=== PATIENT | female | born 1975 | race Caucasian/White ===

== ENCOUNTER 2016-06-05 16:59 | Emergency (ER) | payer OTHER ==
[2016-06-05 17:06] VITALS: BP 118/79; PULSE 71; TEMP 98; BMI 23.9
[2016-06-05] MEDS ORDERED: KETOROLAC TROMETHAMINE 60 MG/2 ML VIAL IM ONE (17:44)
[2016-06-05] MEDS ORDERED: KETOROLAC TROMETHAMINE 60 MG/2 ML VIAL ONE (17:49)
--- NOTE | 2016-06-05 17:55 | PDOC ---
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 Severity: reports: moderate Pain Location: reports: upper extremity Method of Injury: Yes: other (trauma right ring finger) Past History - Past Medical History Allergies/Adverse Reactions: Allergies Allergy/AdvReac Type Severity Reaction Status Date / Time morphine Allergy Rash Verified 06/05/16 17:06 Home Medications: Ambulatory Orders Ibuprofen [Advil -] 200 mg PO PRN PRN 11/09/14 Meclizine HCl 25 mg PO TID #30 tab.chew 11/09/14 Naproxen [EC-Naprosyn] 375 mg PO BID #20 tablet.ec 06/05/16 Anemia: No Asthma: No Cancer: No Cardiac Disorders: No CVA: No COPD: No CHF: No Dementia: No Diabetes: No GI Disorders: No Disorders: No HTN: No Hypercholesterolemia: Yes Liver Disease: No Seizures: No Thyroid Disease: No - Surgical History Neurologic Surgery: Yes (SPINAL SX S/P FALL) - Psycho/Social/Smoking Cessation Hx Anxiety: No Suicidal Ideation: No Smoking Status: No Smoking History: Never smoked Number of Cigarettes Smoked Daily: 0 Hx Alcohol Use: No Drug/Substance Use Hx: No Substance Use Type: None Hx Substance Use Treatment: No Review of Systems - Review of Systems Constitutional: No: Chills, Fever, Malaise HEENTM: No: Symptoms Reported Respiratory: No: Symptoms reported Cardiac (ROS): No: Symptoms Reported, Irregular Heart Rate Musculoskeletal: Yes: Joint Pain, Joint Swelling, Neck Pain Neurological: Yes: Paresthesia, Tingling (intermitent) *Physical Exam - Vital Signs Last Vital Signs Temp Pulse Resp BP Pulse Ox 98.0 F 71 20 118/79 98 06/05/16 17:01 06/05/16 17:01 06/05/16 17:01 06/05/16 17:01 06/05/16 17:01 - Physical Exam General Appearance: Yes: Appropriately Dressed HEENT: positive: Pharynx Normal. negative: TMs Normal Neck: positive: Tender, Supple, Tender midline (area L4-L5). negative: Rigid, Rigidity Respiratory/Chest: positive: Lungs Clear Integumentary: positive: Normal Color, Dry, Warm. negative: Petechiae, Rash, Swelling, Ecchymosis, Bruising Neurologic: positive: Facial Droop, Sensory Deficit (not noted today). negative : Numbness Deep Tendon Reflexes: Bicep (L): 2+, Bicep (R): 2+, Tricep (L): 2+, Tricep (R): 2+ ED Treatment Course - RADIOLOGY Radiology Studies Ordered: Category Date Time Status FINGER(S) RIGHT [RAD] Stat Radiology 06/05/16 17:44 Ordered SPINE-CERVICAL [RAD] Stat Radiology 06/05/16 17:44 Ordered Medical Decision Making - Medical Decision Making 06/05/16 20:04 Will have pt go see Dr Ceballos this week; and start naprosyn at home today; pain better post toradol *DC/Admit/Observation/Transfer Diagnosis at time of Disposition: Pain of right upper extremity - Discharge Dispostion Disposition: HOME Condition at time of disposition: Critical Admit: No - Referrals Referrals: Alf Sanchez MD [Primary Care Provider] - Henry Ceballos MD [Staff Physician] - - Patient Instructions Additional Instructions: please follow uo with Dr Ceballos this week
== END 2016-06-05 21:44 | disposition home or self-care (01) ==
LOC: JERFT 16:59
PROC: 3E0233Z Introduction of Anti-inflammatory into Muscle, Percutaneous Approach (ICD-10-PCS; principal; 2016-06-05)
DX: M79.601 Pain in right arm (principal)
CPT/HCPCS: 72050-TC; 73140-TC-RT; 93971; 96372; 99281-25

== ENCOUNTER 2017-02-21 06:11 | Emergency (ER) | payer OTHER ==
[2017-02-21 06:32] VITALS: BMI 24.7
--- NOTE | 2017-02-21 08:21 | PDOC ---
Attending Attestation - Resident Resident Name: Claude Lundberg - ED Attending Attestation I have performed the following: I have examined & evaluated the patient, The case was reviewed & discussed with the resident, I agree w/resident's findings & plan, Exceptions are as noted - HPI HPI: 02/21/17 08:23 41y F no pmhx presents with complaint of cough, congestion, fever x 3 days. no cp, collier, hemoptysis,
[2017-02-21] MEDS ORDERED: ACETAMINOPHEN 500 MG TABLET (FP) PO ONE (08:22)
[2017-02-21] MEDS ORDERED: ACETAMINOPHEN 325 MG TABLET (FP) ONE (08:53)
--- NOTE | 2017-02-21 08:59 | PDOC ---
History of Present Illness - General Chief Complaint: Cold Symptoms Stated Complaint: FEVER Time Seen by Provider: 02/21/17 07:17 History Source: Patient Exam Limitations: No Limitations - History of Present Illness Initial Comments: 02/21/17 09:09 41y F no significant pmhx presents with complaint of nasal congestion, subjective fevers, body aches, cough productive of whitish sputum, sore throat x 4 days - she endorses +sick contacts, 1yo gran ddaughter has the same illness. pt denies any cp, hemoptysis, leg sewlling, dyspnea on exertion. 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 PMD : @Shaunna hernandez Past History - Past Medical History Allergies/Adverse Reactions: Allergies Allergy/AdvReac Type Severity Reaction Status Date / Time morphine Allergy Rash Verified 02/21/17 06:30 Home Medications: Ambulatory Orders Guaifenesin [Robitussin] 100 mg PO Q6H PRN #1 bottle 02/21/17 Pseudoephedrine HCl [Sudafed] 30 mg PO TID #24 tablet 02/21/17 Anemia: No Asthma: No Cancer: No Cardiac Disorders: No CVA: No COPD: No CHF: No Dementia: No Diabetes: No GI Disorders: No Disorders: No HTN: No Hypercholesterolemia: Yes Liver Disease: No Seizures: No Thyroid Disease: No - Surgical History Neurologic Surgery: Yes (SPINAL SX S/P FALL) - Suicide/Smoking/Psychosocial Hx Smoking Status: No Smoking History: Never smoked Have you smoked in the past 12 months: No Number of Cigarettes Smoked Daily: 0 Information on smoking cessation initiated: No Hx Alcohol Use: No Drug/Substance Use Hx: No Substance Use Type: None Hx Substance Use Treatment: No Review of Systems - Review of Systems Able to Perform ROS?: Yes Comments:: 02/21/17 09:11 Constitutional - +Fever, body aches no reported Chills, HEENT: +sore throat no reported vision changes, Respiratory:+cough, no reported sob, hemoptysis Cardiac: no reported chest pain, palpitations, light headedness, leg swelling Abd/GI: no reported abd pain, nausea, vomiting, blood per rectum, melena, diarrhea : no reported dysuria, frequency, discharge Musculskelatal - no reported back pain, joint swelling skin - no reported bruising, erythema, rash neurological: +headache, no reported numbness, focal weakness, tingling, ataxia , hematologic: no reported anemia, easy bruising, easy bleeding *Physical Exam - Vital Signs Last Vital Signs Temp Pulse Resp BP Pulse Ox 100.9 F H 116 H 14 127/97 100 02/21/17 06:30 02/21/17 06:30 02/21/17 06:30 02/21/17 06:30 02/21/17 06:30 - Physical Exam Comments: 02/21/17 09:38 GENERAL: The patient is awake, alert, and fully oriented, Nontoxic - in no acute distress. HEAD: Normocephalic, atraumatic. EYES: extraocular movements intact, sclera anicteric, conjunctiva clear. ENT: Normal voice, Moist mucous membranes. throat slightly erythemaodus NECK: Normal range of motion, supple LUNGS: Breath sounds equal, clear to auscultation bilaterally. No wheezes, no rhonchi, no rales. HEART: Regular rate and rhythm, normal S1 and S2 without murmur, rub or gallop. ABDOMEN: Soft, nontender, normoactive bowel sounds. No guarding, no rebound. . No CVA tenderness EXTREMITIES: Normal range of motion, no edema. No clubbing or cyanosis. No cords, erythema, or tenderness. NEUROLOGICAL: No facial assymetry, Normal speech, PSYCH: Normal mood, normal affect. SKIN: Warm, Dry, normal turgor, Medical Decision Making - Medical Decision Making 02/21/17 09:38 suspect viral syndrome consier influenza but pt is outside window of treatment will treat supportively with antitussive and antipyretic will have pt fu with PMD pts vitals noted for fever/tachcyardia - will give tlyenol return precautions were discussed I discussed the physical exam findings, ancillary test results and final diagnoses with the patient. I answered all of the patient's questions. The patient was satisfied with the care received and felt comfortable with the discharge plan and treatment plan. The patient will call their primary care physician within 24 hours to arrange follow-up and will return to the Emergency Department with any new, persistent or worsening symptoms. *DC/Admit/Observation/Transfer Diagnosis at time of Disposition: Flu-like symptoms, Influenza B - Discharge Dispostion Disposition: HOME Condition at time of disposition: Improved Admit: No - Prescriptions Prescriptions: Guaifenesin [Robitussin] 100 mg PO Q6H PRN #1 bottle PRN Reason: Cough Pseudoephedrine HCl [Sudafed] 30 mg PO TID #24 tablet - Referrals Referrals: Alf Sanchez MD [Primary Care Provider] - - Patient Instructions Printed Discharge Instructions: DI for Viral Upper Respiratory Infection -- Adult Additional Instructions: Regrese al departamento de emergencia de inmediato con CUALQUIER sntoma nuevo, persistente o que empeore. Spreckels tylenol y motrin para la fiebre y dmitry corporales. DEBE llamar y hacer un seguimiento con shearer mdico maana para scarlet mayor evaluaci n de aniya sntomas. Los resultados fueron discutidos con usted. Asegrese de que shearer mdico revise los resultados de shearer evaluacin de emergencia. Return to the emergency department immediately with ANY new, persistent or worsening symptoms. Take tylenol and motrin for fever and body aches. You MUST call and follow up with your doctor tomorrow for further evaluation of your symptoms. Results were discussed with you. Please make sure your doctor reviews the results of your emergency evaluation. - Post Discharge Activity
[2017-02-21 10:42] VITALS: BP 130/79; PULSE 98; TEMP 99.1
== END 2017-02-21 10:50 | disposition home or self-care (01) ==
LOC: JER 06:11
DX: J10.1 Influenza due to other identified influenza virus with other respiratory manifestations (principal)
CPT/HCPCS: 87070; 87430; 87804; 99281-25

== ENCOUNTER → 2018-07-26 | Emergency (ER) | payer OTHER | END | disposition home or self-care (01) | LOC: JER 18:15 ==

== ENCOUNTER 2018-09-16 15:51 | Emergency (ER) | payer OTHER ==
[2018-09-16 15:55] VITALS: BP 112/79; PULSE 78; TEMP 98.3; BMI 24.7
--- NOTE | 2018-09-16 16:15 | PDOC ---
History of Present Illness - General Chief Complaint: Sore Throat Stated Complaint: FEVER/DIZZINESS Time Seen by Provider: 09/16/18 16:05 History Source: Patient Exam Limitations: No Limitations - History of Present Illness Initial Comments: 09/16/18 16:24 Came for evaluation of runny nose, ear congestion, and sore throat pain onset yesterday. States felt feverish but did not take temperature. Nasal drainage is clear, has posterior sinus drainage, and some mild moist cough nonproductive. Timing/Duration: reports: getting worse Severity: reports: mild, moderate Past History - Travel Traveled outside of the country in the last 30 days: No Close contact w/someone who was outside of country & ill: No - Past Medical History Allergies/Adverse Reactions: Allergies Allergy/AdvReac Type Severity Reaction Status Date / Time morphine Allergy Rash Verified 09/16/18 15:55 aspirin AdvReac Verified 09/16/18 17:07 Home Medications: Ambulatory Orders NK [No Known Home Medication] 09/16/18 Anemia: No Asthma: No Cancer: No Cardiac Disorders: No CVA: No COPD: No CHF: No Dementia: No Diabetes: No GI Disorders: No Disorders: No HTN: No Hypercholesterolemia: Yes Liver Disease: No Seizures: No Thyroid Disease: No - Surgical History Neurologic Surgery: Yes (SPINAL SX S/P FALL) - Suicide/Smoking/Psychosocial Hx Smoking Status: No Smoking History: Never smoked Have you smoked in the past 12 months: No Number of Cigarettes Smoked Daily: 0 Hx Alcohol Use: No Drug/Substance Use Hx: No Substance Use Type: None Hx Substance Use Treatment: No Review of Systems - Review of Systems Able to Perform ROS?: Yes Is the patient limited Turkish proficient: Yes Constitutional: Yes: Symptoms Reported, See HPI, Fever, Malaise HEENTM: Yes: Symptoms Reported, See HPI, Throat Pain (with post nasal drainage ) , Throat Swelling, Difficulty Swallowing Respiratory: Yes: Symptoms reported, See HPI, Cough Musculoskeletal: Yes: Symptoms Reported All Other Systems: Reviewed and Negative *Physical Exam - Vital Signs Last Vital Signs Temp Pulse Resp BP Pulse Ox 98.3 F 78 18 112/79 99 09/16/18 15:53 09/16/18 15:53 09/16/18 15:53 09/16/18 15:53 09/16/18 15:53 - Physical Exam General Appearance: Yes: Nourished, Appropriately Dressed, Apparent Distress, Mild Distress HEENT: positive: CRISTOFER, Normal ENT Inspection, Pharynx Normal, Pharyngeal Erythema (no exudate ), Nasal Congestion, Rhinorrhea, Sinus Tenderness. negative: TMs Normal (congested ) Neck: positive: Tender, Supple, Lymphadenopathy (R), Lymphadenopathy (L) Respiratory/Chest: positive: Lungs Clear, Normal Breath Sounds. 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 *DC/Admit/Observation/Transfer Diagnosis at time of Disposition: Upper respiratory infection, viral - Discharge Dispostion Disposition: HOME Condition at time of disposition: Stable Decision to Admit order: No - Referrals - Patient Instructions Printed Discharge Instructions: DI for Viral Upper Respiratory Infection -- Adult Additional Instructions: Rest, drink lots of fluids: Teas, water, soups, Pedialyte Saltwater gargles Steamy showers/seem to face break up mucus Avoid contact with others until fevers and cough resolved Lots of handwashing and good hygiene Continue [id number] medications for symptomatic relief Tylenol or Motrin for fever and pain Followup with private physician in one to 2 days as needed Return to emergency department for worsened symptoms, fevers, dehydration - Post Discharge Activity Forms/Work/School Notes: Back to Work
== END 2018-09-16 17:20 | disposition home or self-care (01) ==
LOC: JERFT 15:51
DX: J06.9 Acute upper respiratory infection, unspecified (principal); B97.89 Other viral agents as the cause of diseases classified elsewhere; E78.00 Pure hypercholesterolemia, unspecified
CPT/HCPCS: 87070; 87880; 99281-25

== ENCOUNTER 2018-11-16 15:48 | Emergency (ER) | payer OTHER ==
[2018-11-16 16:15] VITALS: BP 120/65; PULSE 76; TEMP 98.6; BMI 26.5
--- NOTE | 2018-11-16 16:16 | PDOC ---
Rapid Medical Evaluation Medical Evaluation: Allergies Allergy/AdvReac Type Severity Reaction Status Date / Time morphine Allergy Rash Verified 09/16/18 15:55 aspirin AdvReac Verified 09/16/18 17:07 I have performed a brief in-person evaluation of this patient. 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 11/16/18 16:11
[2018-11-16] MEDS ORDERED: ACETAMINOPHEN 500 MG TABLET (FP) PO ONE (17:05)
[2018-11-16] MEDS ORDERED: ACETAMINOPHEN 500 MG TABLET (FP) ONE (17:15)
[2018-11-16 17:55] LABS: BASO % 0.7 % (0-2.0); EOS % 1.7 % (0-4.5); HEMATOCRIT 36.9 % (32.4-45.2); HEMOGLOBIN 11.9 GM/dL (10.7-15.3); MCH 27.5 pg (25.7-33.7); MCHC 32.3 g/dl (32.0-36.0); MEAN CELL VOLUME 85.2 fl (80-96); MEAN PLT VOLUME 8.1 fl (7.5-11.1); MONO % 7.6 % (3.8-10.2); PLATELET COUNT 323 K/MM3 (134-434); RBC 4.33 M/mm3 (3.60-5.2); RDW 14.5 % (11.6-15.6); WHITE BLOOD COUNT 5.6 K/mm3 (4.0-10.0)
[2018-11-16 18:06] LABS: EPI CELLS 0.5 /HPF (0-5/HPF); HYALINE CASTS 0 /lpf (0-8); PH,URINE 7.5 (5.0-8.0); URINE APPEARANCE CLEAR; URINE BACTERIA 2.5 /hpf (NEGATIVE); URINE BILIRUBIN NEGATIVE (NEGATIVE); URINE COLOR YELLOW; URINE GLUCOSE (UA) NEGATIVE (NEGATIVE); URINE KETONE NEGATIVE (NEGATIVE); URINE LEUK ESTERASE NEGATIVE (NEGATIVE); URINE NITRITE NEGATIVE (NEGATIVE); URINE PROTEIN NEGATIVE (NEGATIVE); URINE RBC 113 /hpf (0-4); URINE UROBILINOGEN 0.2 mg/dL (0.2-1.0); URINE WBC 0 /hpf (0-5)
[2018-11-16 18:23] LABS: ALBUMIN 3.8 g/dl (3.4-5.0); BILIRUBIN,TOTAL 0.4 mg/dL (0.2-1); BLOOD UREA NITROGEN 8.4 mg/dL (7-18); CALCIUM 8.9 mg/dL (8.5-10.1); CREATININE 0.9 mg/dL (0.55-1.3); POTASSIUM 3.7 mmol/L (3.5-5.1); TOT PROT 7.6 g/dl (6.4-8.2)
--- NOTE | 2018-11-16 18:52 | PDOC ---
History of Present Illness - General Chief Complaint: Pain Stated Complaint: HAND PAIN Time Seen by Provider: 11/16/18 16:11 History Source: Patient - History of Present Illness Occurred: reports: other Upper Extremity Pain Location: right: arm Past History - Past Medical History Allergies/Adverse Reactions: Allergies Allergy/AdvReac Type Severity Reaction Status Date / Time morphine Allergy Rash Verified 11/16/18 16:15 aspirin AdvReac Verified 11/16/18 16:15 Home Medications: Ambulatory Orders Acetaminophen [Tylenol -] 1,000 mg PO Q6H #30 tablet 11/16/18 Anemia: No Asthma: No Cancer: No Cardiac Disorders: No CVA: No COPD: No CHF: No Dementia: No Diabetes: No GI Disorders: No Disorders: No HTN: No Hypercholesterolemia: Yes Liver Disease: No Seizures: No Thyroid Disease: No - Surgical History Neurologic Surgery: Yes (SPINAL SX S/P FALL) - Suicide/Smoking/Psychosocial Hx Smoking Status: No Smoking History: Never smoked Have you smoked in the past 12 months: No Number of Cigarettes Smoked Daily: 0 Information on smoking cessation initiated: No Hx Alcohol Use: No Drug/Substance Use Hx: No Substance Use Type: None Hx Substance Use Treatment: No Review of Systems - Review of Systems Constitutional: No: Chills, Fever Musculoskeletal: Yes: Joint Pain, Joint Swelling *Physical Exam - Vital Signs Last Vital Signs Temp Pulse Resp BP Pulse Ox 98.6 F 76 16 120/65 100 11/16/18 16:12 11/16/18 16:12 11/16/18 16:12 11/16/18 16:12 11/16/18 16:12 - Physical Exam General Appearance: Yes: Appropriately Dressed, Mild Distress HEENT: positive: Normal Voice Neck: positive: Supple Respiratory/Chest: negative: Respiratory Distress Extremity: positive: Other (mild swelling to dorsum of R hand extending into wrist/distal forearm, + scaly patch to dorsal aspect of distal forearm, ? fungal , similar rash to dorsum of L wrist as well) Integumentary: positive: Dry, Warm Neurologic: positive: Fully Oriented, Alert, Normal Mood/Affect ED Treatment Course - LABORATORY CBC & Chemistry Diagram: 11/16/18 17:25 11/16/18 17:25 - ADDITIONAL ORDERS Additional order review: Laboratory Results 11/16/18 11/16/18 11/16/18 17:35 17:35 17:25 Sodium 137 Potassium 3.7 Chloride 104 Carbon Dioxide 29 Anion Gap 4 L BUN 8.4 Creatinine 0.9 Est GFR (CKD-EPI)AfAm 92.05 Est GFR (CKD-EPI)NonAf 79.42 Random Glucose 94 Calcium 8.9 Total Bilirubin 0.4 AST 25 ALT 44 Alkaline Phosphatase 79 C-Reactive Protein Total Protein 7.6 Albumin 3.8 Urine Color Yellow Urine Appearance Clear Urine pH 7.5 Ur Specific [place] 1.011 Urine Protein Negative Urine Glucose (UA) Negative Urine Ketones Negative Urine Blood 2+ H Urine Nitrite Negative Urine Bilirubin Negative Urine Urobilinogen 0.2 Ur Leukocyte Esterase Negative Urine WBC (Auto) 0 Urine RBC (Auto) 113 Urine Casts (Auto) 0 U Epithel Cells (Auto) 0.5 Urine Bacteria (Auto) 2.5 Urine HCG, Qual Negative 11/16/18 17:25 Sodium Potassium Chloride Carbon Dioxide Anion Gap BUN Creatinine Est GFR (CKD-EPI)AfAm Est GFR (CKD-EPI)NonAf Random Glucose Calcium Total Bilirubin AST ALT Alkaline Phosphatase C-Reactive Protein < 0.3 Total Protein Albumin Urine Color Urine Appearance Urine pH Ur Specific [place] Urine Protein Urine Glucose (UA) Urine Ketones Urine Blood Urine Nitrite Urine Bilirubin Urine Urobilinogen Ur Leukocyte Esterase Urine WBC (Auto) Urine RBC (Auto) Urine Casts (Auto) U Epithel Cells (Auto) Urine Bacteria (Auto) Urine HCG, Qual 11/16/18 17:25 RBC 4.33 MCV 85.2 MCHC 32.3 RDW 14.5 D MPV 8.1 Neutrophils % 53.0 Lymphocytes % 37.0 Monocytes % 7.6 Eosinophils % 1.7 Basophils % 0.7 - Medications Given in the ED: ED Medications Discontinued Medications Generic Name Dose Route Start Last Admin Trade Name Freq PRN Reason Stop Dose Admin Acetaminophen 1,000 mg 11/16/18 17:05 11/16/18 17:18 Tylenol - PO 11/16/18 17:06 1,000 mg ONCE ONE Administration Medical Decision Making - Medical Decision Making 11/16/18 18:51 43 yo F, no sig hx, here w/ pain and swelling to R hand w/ pain that radiates to R arm x several days. 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 No sensory changes or weakness. Denies f/c. No h/o similar episode See exam Atraumatic RUE pain Etiology unclear, ? inflammatory source, n/o e/o infxn, no h/o gout or septic joint Labs wnl Pain improved w/ meds here, unable to give NSAIDs 2/2 allergy -Dc w/ pain control and PMD next wek *DC/Admit/Observation/Transfer Diagnosis at time of Disposition: Right arm pain Hand swelling Qualifiers: Laterality: right Qualified Code(s): M79.89 - Other specified soft tissue disorders - Discharge Dispostion Disposition: HOME Condition at time of disposition: Improved - Prescriptions Prescriptions: Acetaminophen [Tylenol -] 1,000 mg PO Q6H #30 tablet - Referrals - Patient Instructions Printed Discharge Instructions: DI for Arm Pain Additional Instructions: La razn de shearer dolor en el braz[place] no est tim El dolor puede deberse a inflamacin. [place] laboratorios kevin normales aqu [place] tylenol tristian clinton lo envi a la farmacia y anh un seguimiento con shearer PMD la prxima semana Regrese a la [place] para empeorar los sntomas. Print Language: BENGALI - Post Discharge Activity
== END 2018-11-16 19:36 | disposition home or self-care (01) ==
LOC: JERFT 15:48
DX: M79.601 Pain in right arm (principal); Z88.6 Allergy status to analgesic agent; Z88.5 Allergy status to narcotic agent
CPT/HCPCS: 36415; 80053; 81003; 84703; 85025; 85651; 86140; 99281-25

== ENCOUNTER 2018-12-31 18:17 | Emergency (ER) | payer OTHER ==
[2018-12-31 18:42] VITALS: BP 104/66; PULSE 88; TEMP 97.8; BMI 26.5
--- NOTE | 2018-12-31 20:05 | PDOC ---
History of Present Illness - General Chief Complaint: Pain Stated Complaint: R/ARM/PAIN Time Seen by Provider: 12/31/18 19:56 - History of Present Illness Initial Comments: 12/31/18 20:01 43-year-old female without comorbidities presents for evaluation of right hand pain x4 weeks without any precipitating traumatic event no systemic symptoms Past History - Past Medical History Allergies/Adverse Reactions: Allergies Allergy/AdvReac Type Severity Reaction Status Date / Time morphine Allergy Rash Verified 12/31/18 18:27 aspirin AdvReac Verified 12/31/18 18:27 Home Medications: Ambulatory Orders Acetaminophen [Tylenol -] 1,000 mg PO Q6H #30 tablet 11/16/18 Cyclobenzaprine HCl [Flexeril 10 mg] 10 mg PO HS PRN #10 tablet 12/31/18 Methylprednisolone [Medrol Dose Lew] 4 mg PO ASDIR #21 tablet 12/31/18 Anemia: No Asthma: No Cancer: No Cardiac Disorders: No CVA: No COPD: No CHF: No Dementia: No Diabetes: No GI Disorders: No Disorders: No HTN: No Hypercholesterolemia: Yes Liver Disease: No Seizures: No Thyroid Disease: No - Surgical History Neurologic Surgery: Yes (SPINAL SX S/P FALL) - Immunization History Immunization Up to Date: Yes - Psycho Social/Smoking Cessation Hx Smoking Status: No Smoking History: Never smoked Have you smoked in the past 12 months: No Number of Cigarettes Smoked Daily: 0 Information on smoking cessation initiated: No Hx Alcohol Use: No Drug/Substance Use Hx: No Substance Use Type: None Hx Substance Use Treatment: No Review of Systems - Review of Systems Musculoskeletal: Yes: Joint Pain *Physical Exam - Vital Signs Last Vital Signs Temp Pulse Resp BP Pulse Ox 97.8 F 88 16 104/66 100 12/31/18 18:27 12/31/18 18:27 12/31/18 18:27 12/31/18 18:27 12/31/18 18:27 - Physical Exam Comments: 12/31/18 20:02 Right hand skin color and temperature normal. There is a mallet finger at the fourth DIPJ which is been long-standing. 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 5 out of 5 strength in bilateral upper extremities positive Spurling maneuver producing right-sided cervical radiculopathy no gross sensorimotor deficits upper extremity compartments are soft nontender neurovascular intact Medical Decision Making - Medical Decision Making 12/31/18 20:02 Reproducible cervical radiculopathy with Spurling maneuver Danielle Duenas follow-up with neurosurgery Discharge - Discharge Information Problems reviewed: Yes Clinical Impression/Diagnosis: Cervical radiculopathy Condition: Stable Disposition: HOME - Admission No - Follow up/Referral Referrals: Mariely Ya MD [Primary Care Provider] - Lobo Kinney MD, FAANS [Staff Physician] - - Patient Discharge Instructions Additional Instructions: Return to the emergency room for worsening symptoms. Without fail please follow -up with neurosurgery in 1 to 2 days for further evaluation and treatment options. Please take the muscle relaxer as directed and start a steroid pack in the morning and take that as directed. - Post Discharge Activity
== END 2018-12-31 20:10 | disposition home or self-care (01) ==
LOC: JERFT 18:17
DX: M54.12 Radiculopathy, cervical region (principal); E78.00 Pure hypercholesterolemia, unspecified; Z88.6 Allergy status to analgesic agent; Z88.5 Allergy status to narcotic agent
CPT/HCPCS: 99282-25

== ENCOUNTER 2019-11-07 11:53 | Emergency (ER) | payer OTHER ==
[2019-11-07 12:07] VITALS: BP 129/84; PULSE 80; TEMP 98.4; BMI 24.7
--- NOTE | 2019-11-07 12:33 | PDOC ---
Rapid Medical Evaluation Chief Complaint: Cold Symptoms Time Seen by Provider: 11/07/19 12:10 Medical Evaluation: Allergies Allergy/AdvReac Type Severity Reaction Status Date / Time morphine Allergy Rash Verified 11/07/19 12:07 aspirin AdvReac Verified 11/07/19 12:07 Vital Signs Temp Pulse Resp BP Pulse Ox 98.4 F 80 18 129/84 99 11/07/19 12:04 11/07/19 12:04 11/07/19 12:04 11/07/19 12:04 11/07/19 12:04 11/07/19 12:27 HPI: COVID-19 CDC guideline data points: The patient is a 44-year-old female with complaint of 4 days of body aches, fevers with T-max of 100.8F, sore throat and cough. She states her was COVID positive 2 months ago, but she was never sick but had been around him. She denies any past medical history. She is allergic to morphine. ROS: NEGATIVE: difficulty breathing, shortness of breath, chest pain, lightheadedness, dizziness, nausea, vomiting and diarrhea. Other 12 point ROS reviewed and negative. Positve: cough, bodyaches, sore throat Exam: General: NAD, Well-Appearing, Awake, Alert Oriented x3. Vital signs stable. ENT: No rhinorrhea or nasal congestion. Throat without exudates, no edema, uvula midline without edema. Neck: FROM, no midline tenderness. Lungs: Clear to auscultation bilaterally without wheezes, rhonchi or rales. Normal excursion. Patient is able to speak in full sentences. Heart: HR: 80 Regular rhythm, S1-S2 present, no murmurs rubs or gallops. Abdomen: Non-distended. MSK/Extremities: No decrease ROM, No obvious deformities. No obvious cyanosis noted. Neuro: Normal Gait, Cranial Nerves II through XII Grossly Intact. Skin: No obvious rashes, bruising. Color Normal Appearing. Assessment/Plan: The patient is a 44-year-old female with complaint of 4 days of body aches, fevers with T-max of 100.8F, sore throat and cough. She states her was COVID positive 2 months ago, but she was never sick but had been around him. She denies any past medical history. She is allergic to morphine. Patient has a history of this/these comorbidities: [none], denies recent travel Treatment: COVID tested Discharge Disposition - Diagnosis Suspected COVID-19 virus infection - Discharge Dispostion Disposition: HOME Condition at time of disposition: Stable - Referrals - Patient Instructions Printed Discharge Instructions: [facility] Instructions, [facility] COVID-19 Isolation Protocol Additional Instructions: You were tested for COVID today. We will call you within 1-3 days with results once they become available. You must quarantine until the results become available. Take Tylenol 650 mg every 6 hours as needed for fever or pain. You may take Robitussin or other [id number] cough syrup. Follow the dosing instructions on the bottle. Warm tea, honey, and salt water gargles may help your symptoms. Please take precautions and self quarantine for 2 weeks and follow-up with your primary care doctor and the Department of Health. Return to the nearest emergency department for shortness of breath, difficulty breathing, chest pain, or if you have any changes in your symptoms. Hoy te hicieron la prueba de COVID. Lo llamaremos dentro de 1-3 elizabeth con los resultados scarlet vez que estn disponibles. Debe poner en cuarentena hasta que los resultados estn disponibles. [address] Tylenol 650 mg cada 6 horas segn sea necesario para la fiebre o el dolor. Puede aldo Robitussin u otro jarabe para la tos de venta agustin. Siga las instrucciones de dosificacin del frasco. Las grgaras con t tibio, miel y agua salada pueden ayudar con aniya sntomas. [address] precauciones y pngase en cuarentena rola 2 semanas y anh un seguimiento con shearer mdico de atencin primaria y el Departamento de [place]. Regrese al departamento de emergencias ms cercano si tiene dificultad para respirar, dificultad para respirar, dolor en el pecho o si tiene algn cambio en aniya sntomas. Print Language: SAUDI ARABIAN - Post Discharge Activity
== END 2019-11-07 12:55 | disposition home or self-care (01) ==
LOC: JER 11:53
DX: Z03.818 Encounter for observation for suspected exposure to other biological agents ruled out (principal)
CPT/HCPCS: 99284-25; U0003

== ENCOUNTER 2020-07-18 17:18 | Emergency (ER) | payer OTHER ==
[2020-07-18 17:34] VITALS: BP 128/79; PULSE 84; TEMP 98.5; BMI 51.7
[2020-07-18] MEDS ORDERED: SODIUM CHLORIDE 0.9% 500 ML INFUS.BAG IV ONE (18:38)
[2020-07-18 19:30] LABS: HEMATOCRIT 35.6 % (32.4-45.2); HEMOGLOBIN 11.6 GM/dL (10.7-15.3); MCH 25.6 pg (25.7-33.7); MCHC 32.7 g/dl (32.0-36.0); MEAN CELL VOLUME 78.3 fl (80-96); PH,URINE 6.5 (5.0-8.0); PLATELET COUNT 325 K/MM3 (134-434); RBC 4.55 M/mm3 (3.60-5.2); URINE APPEARANCE CLEAR; URINE BILIRUBIN NEGATIVE (NEGATIVE); URINE COLOR YELLOW; URINE GLUCOSE (UA) NEGATIVE (NEGATIVE); URINE KETONE NEGATIVE (NEGATIVE); URINE LEUK ESTERASE NEGATIVE (NEGATIVE); URINE NITRITE NEGATIVE (NEGATIVE); URINE PROTEIN NEGATIVE (NEGATIVE); URINE UROBILINOGEN 0.2 mg/dL (0.2-1.0)
[2020-07-18 19:51] LABS: CHLORIDE 105 mmol/L (98-107); SODIUM 136 mmol/L (136-145)
[2020-07-18 19:53] LABS: ALBUMIN 3.8 g/dl (3.4-5.0); ANION GAP 4 MMOL/L (8-16); BLOOD UREA NITROGEN 12.4 mg/dL (7-18); CALCIUM 8.7 mg/dL (8.5-10.1); CO2 27 mmol/L (21-32); GLUCOSE,RANDOM 92 mg/dL (74-106)
[2020-07-18 19:56] LABS: CREATININE 0.7 mg/dL (0.55-1.3); SGOT/AST 27 U/L (15-37); SGPT/ALT 24 U/L (13-61)
[2020-07-18 19:58] LABS: BILIRUBIN,TOTAL 0.3 mg/dL (0.2-1)
[2020-07-18 19:59] LABS: ALK PHOS 82 U/L (45-117)
== END 2020-07-18 21:46 | disposition home or self-care (01) ==
LOC: JER 17:18
DX: R10.30 Lower abdominal pain, unspecified (principal)
CPT/HCPCS: 36415; 80053; 81003; 84702; 85027; 86850; 86900; 86901; 99284-25

== ENCOUNTER 2021-02-09 17:40 | Emergency (ER) | payer OTHER ==
[2021-02-09 17:47] VITALS: BP 144/87; PULSE 92; TEMP 97.8; BMI 24.7
[2021-02-09] MEDS ORDERED: KETOROLAC TROMETHAMINE 15 MG/ML VIAL IM ONE (19:29)
[2021-02-09] MEDS ORDERED: METHOCARBAMOL 500 MG TABLET PO ONE (19:33)
[2021-02-09] MEDS ORDERED: KETOROLAC TROMETHAMINE 30 MG/1 ML VIAL ONE (19:52)
[2021-02-09] MEDS ORDERED: METHOCARBAMOL 500 MG TABLET ONE (19:52)
== END 2021-02-09 20:33 | disposition home or self-care (01) ==
LOC: JERFT 17:40
PROC: 3E023GC Introduction of Other Therapeutic Substance into Muscle, Percutaneous Approach (ICD-10-PCS; principal; 2021-02-09)
DX: R51.9 Headache, unspecified (principal)
CPT/HCPCS: 70450-TC; 99284-25

== ENCOUNTER 2022-05-18 10:23 | Emergency (ER) | payer OTHER ==
[2022-05-18 10:41] VITALS: TEMP 98; BMI 27.4
[2022-05-18] MEDS ORDERED: ACETAMINOPHEN 1000 MG/100 ML BAG IVPB ONE (12:47)
[2022-05-18] MEDS ORDERED: SODIUM CHLORIDE 1,000 ML IV STA (12:47)
[2022-05-18] MEDS ORDERED: ACETAMINOPHEN INJECTION 100 ML IVPB ONE (13:06)
[2022-05-18 14:08] LABS: BASO % 0.6 % (0-2.0); EOS % 1.8 % (0-4.5); HEMATOCRIT 33.2 % (32.4-45.2); HEMOGLOBIN 10.7 GM/dL (10.7-15.3); LYMPH % 41.3 % (8-40); MCH 23.4 pg (25.7-33.7); MCHC 32.3 g/dl (32.0-36.0); MEAN CELL VOLUME 72.3 fl (80-96); MONO % 6.7 % (3.8-10.2); NEUT % 49.6 % (42.8-82.8); PLATELET COUNT 366 10^3/uL (134-434); RBC 4.59 M/mm3 (3.60-5.2); RDW 16.9 % (11.6-15.6); WHITE BLOOD COUNT 7.2 K/mm3 (4.0-10.0)
[2022-05-18 14:30] LABS: ALBUMIN 3.8 g/dl (3.4-5.0); BLOOD UREA NITROGEN 12.3 mg/dL (7-18); CALCIUM 9.2 mg/dL (8.5-10.1)
[2022-05-18 14:33] LABS: CREATININE 0.7 mg/dL (0.55-1.3)
[2022-05-18 14:35] LABS: BILIRUBIN,TOTAL 0.2 mg/dL (0.2-1); TOT PROT 7.7 g/dl (6.4-8.2)
[2022-05-18 17:26] VITALS: BP 143/84; PULSE 65; RESP 16
[2022-05-18 23:00] LABS: PH,URINE 6.5 (5.0-8.0); URINE APPEARANCE CLEAR; URINE BILIRUBIN NEGATIVE (NEGATIVE); URINE COLOR YELLOW; URINE GLUCOSE (UA) NEGATIVE (NEGATIVE); URINE KETONE NEGATIVE (NEGATIVE); URINE LEUK ESTERASE NEGATIVE (NEGATIVE); URINE NITRITE NEGATIVE (NEGATIVE); URINE PROTEIN NEGATIVE (NEGATIVE); URINE UROBILINOGEN 0.2 mg/dL (0.2-1.0)
[2022-05-18 23:03] LABS: HCG,QUALITATIVE URINE Negative
== END 2022-05-18 17:34 | disposition home or self-care (01) ==
LOC: JER 10:23
PROC: 3E033NZ Introduction of Analgesics, Hypnotics, Sedatives into Peripheral Vein, Percutaneous Approach (ICD-10-PCS; principal; 2022-05-18)
PROC: 3E0337Z Introduction of Electrolytic and Water Balance Substance into Peripheral Vein, Percutaneous Approach (ICD-10-PCS; 2022-05-18)
DX: N83.201 Unspecified ovarian cyst, right side (principal); D25.9 Leiomyoma of uterus, unspecified
CPT/HCPCS: 36415; 74177-TC; 76830-TC; 80053; 81003; 83690; 84703; 85025; 86850; 86900; 86901; 87086; 99285-25; Q9967

== ENCOUNTER → 2022-08-18 | Day surgery (SDC) | payer OTHER | END | disposition home or self-care (01) | LOC: FRADUS-SUR 12:52 | PROVIDERS: ATTEND Midwife | PROC: 0HBT3ZX Excision of Right Breast, Percutaneous Approach, Diagnostic (ICD-10-PCS; principal; 2022-08-18) | DX: D24.1 Benign neoplasm of right breast (principal); N60.21 Fibroadenosis of right breast; N63.12 Unspecified lump in the right breast, upper inner quadrant | CPT/HCPCS: 19083; 76642-TC-RT; 77065-TC; 87899; 88305-TC; 88342-TC; A4648 ==

== ENCOUNTER 2022-11-04 11:01 | Emergency (ER) | payer OTHER ==
[2022-11-04 11:07] VITALS: BP 119/72; PULSE 91; RESP 18; TEMP 98.8; BMI 25.7
[2022-11-04] MEDS ORDERED: IBUPROFEN 600 MG TABLET (FP) PO ONE ×2 (11:35→11:48)
== END 2022-11-04 15:46 | disposition home or self-care (01) ==
LOC: JERFT 11:01
DX: M25.571 Pain in right ankle and joints of right foot (principal); M25.572 Pain in left ankle and joints of left foot; R22.43 Localized swelling, mass and lump, lower limb, bilateral; M79.661 Pain in right lower leg; M79.662 Pain in left lower leg
CPT/HCPCS: 73590-TC-LT-FY; 73590-TC-RT-FY; 73610-TC-LT-FY; 73610-TC-RT-FY; 73630-TC-LT; 73630-TC-RT-FY; 93970-TC; 99284-25

== ENCOUNTER 2023-07-23 18:34 | Emergency (ER) | payer OTHER ==
[2023-07-23 18:42] VITALS: BP 126/81; PULSE 80; RESP 18; TEMP 98.5; BMI 23.5
[2023-07-23] MEDS ORDERED: TETRACAINE 0.5% OPHTH SOLN 2 ML BOTTLE ONE (19:14)
[2023-07-23] MEDS ORDERED: ACETAMINOPHEN 500 MG TABLET (FP) ONE (19:14)
[2023-07-23] MEDS ORDERED: FLUORESCEIN NA 1 EA STRIP ONE (19:14)
[2023-07-23] MEDS: ACETAMINOPHEN 500 MG TABLET (FP) PO ONE (19:16)
[2023-07-23] MEDS: TETRACAINE 0.5% HCL 0.6ML DROPPER.BOTTLE OS ONE (20:07)
[2023-07-23] MEDS: FLUORESCEIN NA 1 EA STRIP OS ONE (20:07)
== END 2023-07-23 20:07 | disposition home or self-care (01) ==
LOC: JERFT 18:34
DX: H57.12 Ocular pain, left eye (principal); R25.3 Fasciculation; H57.89 Other specified disorders of eye and adnexa
CPT/HCPCS: 99283-25

== ENCOUNTER 2024-07-10 09:28 | Emergency (ER) | payer OTHER ==
[2024-07-10 09:35] VITALS: BP 124/69; PULSE 79; RESP 18; TEMP 98.2; BMI 27.4
[2024-07-10] MEDS ORDERED: RABIES VACCINE (PCEC)/PF 2.5 UNIT/VIAL IM ONE (09:46)
[2024-07-10] MEDS: RABIES VACCINE (PCEC)/PF 2.5 UNIT/VIAL IM ONE (09:51)
== END 2024-07-10 10:04 | disposition home or self-care (01) ==
LOC: JERFT 09:28
PROC: 3E0234Z Introduction of Serum, Toxoid and Vaccine into Muscle, Percutaneous Approach (ICD-10-PCS; principal; 2024-07-10)
DX: Z29.14 Encounter for prophylactic rabies immune globulin (principal)
CPT/HCPCS: 90675; 99281-25